=== PATIENT | male | born 1980 | race African-American/Black ===

== ENCOUNTER 2017-04-12 13:33 | Emergency (ER) | payer SELFPAY ==
[~2017-04-12] VITALS: Ht 165.1 cm; Wt 70.0 kg
[2017-04-12] MEDS: NAPROXEN 500MG TABLET PO ONE ×2 (18:59→19:00)
[2017-04-12] MEDS ORDERED: NAPROXEN 500MG TABLET PO NR (19:15)
[2017-04-12 20:31] VITALS: BP 120/76
== END 2017-04-12 20:35 | disposition home or self-care (01) ==
LOC: ER 13:33
DX: S63.612A Unspecified sprain of right middle finger, initial encounter (principal); S63.614A Unspecified sprain of right ring finger, initial encounter; M25.531 Pain in right wrist; F17.210 Nicotine dependence, cigarettes, uncomplicated; V19.3XXA Pedal cyclist (driver) (passenger) injured in unspecified nontraffic accident, initial encounter; Y93.89 Activity, other specified; Y92.488 Other paved roadways as the place of occurrence of the external cause
CPT/HCPCS: 73110; 73130; 99284

== ENCOUNTER 2017-11-24 06:28 | Emergency (ER) | payer MEDICAID, MEDICARE ==
[~2017-11-24] VITALS: Ht 170.2 cm; Wt 77.0 kg
[2017-11-24 06:48] VITALS: BP 133/69
== END 2017-11-24 11:40 | disposition home or self-care (01) ==
LOC: ER 06:28
DX: S93.505A Unspecified sprain of left lesser toe(s), initial encounter (principal); F17.200 Nicotine dependence, unspecified, uncomplicated; X50.1XXA Overexertion from prolonged static or awkward postures, initial encounter; Y93.01 Activity, walking, marching and hiking; Y92.89 Other specified places as the place of occurrence of the external cause; Y99.8 Other external cause status
CPT/HCPCS: 73660; 99284; Z7610